=== PATIENT | male | born 1990 | race Two or more races ===

== ENCOUNTER 2018-08-06 23:11 | Emergency (ER) | payer SELFPAY ==
[~2018-08-06] VITALS: Ht 170.2 cm; Wt 72.6 kg
--- NOTE | 2018-08-06 23:28 | PHYS DOC ---
Adult General Chief Complaint Chief Complaint: FLANK PAIN HPI HPI Patient is a 27 year old male who presents with 10 out of 10 left flank pain that began a couple minutes prior to coming to the ED. Patient is also complaining of dark urine, nausea and vomiting. Denies any fever. He states he has history of kidney stones. He states he has not taken anything for his symptoms. Review of Systems Review of Systems Constitutional: Denies fever or chills [] Eyes: Denies change in visual acuity, redness, or eye pain [] HENT: Denies nasal congestion or sore throat [] Respiratory: Denies cough or shortness of breath [] Cardiovascular: No additional information not addressed in HPI [] GI: Reports nausea and vomiting. Denies abdominal pain, bloody stools or diarrhea [] : Reports left flank pain. Denies dysuria or hematuria [] Musculoskeletal: Denies back pain or joint pain [] Integument: Denies rash or skin lesions [] Neurologic: Denies headache, focal weakness or sensory changes [] All other systems were reviewed and found to be within normal limits, except as documented in this note. Current Medications Current Medications Current Medications Medications (Trade) Dose Ordered Sig/Wilmar Start Time Stop Time Status Last Admin Dose Admin Ciprofloxacin/ Dextrose 200 ml @ 200 mls/hr 1X STAT 08/07/18 00:27 08/07/18 01:26 UNV Ketorolac Tromethamine (Toradol 30mg Vial) 30 mg 1X ONCE 08/06/18 23:30 08/06/18 23:31 DC 08/06/18 23:34 30 MG Morphine Sulfate (Morphine Sulfate) 5 mg 1X ONCE 08/06/18 23:30 08/06/18 23:31 DC 08/06/18 23:34 5 MG Ondansetron HCl (Zofran) 4 mg 1X ONCE 08/06/18 23:30 08/06/18 23:31 DC 08/06/18 23:34 4 MG Potassium Chloride (Klor-Con) 40 meq 1X ONCE 08/07/18 00:15 08/07/18 00:16 DC 08/07/18 00:11 40 MEQ Sodium Chloride 1,000 ml @ 1,000 mls/hr 1X ONCE 08/06/18 23:30 08/07/18 00:29 DC 08/06/18 23:33 1,000 MLS/HR Tamsulosin HCl (Flomax) 0.4 mg 1X ONCE 08/07/18 00:00 08/07/18 00:03 DC 08/07/18 00:11 0.4 MG Allergies Allergies Allergies Coded Allergies Type Severity Reaction Last Updated Verified No Known Drug Allergies 08/06/18 No Physical Exam Physical Exam Constitutional: Well developed, well nourished, no acute distress, non-toxic appearance. [] HENT: Normocephalic, atraumatic, bilateral external ears normal, oropharynx moist, no oral exudates, nose normal. [] Eyes: PERRLA, EOMI, conjunctiva normal, no discharge. [] Neck: Normal range of motion, no tenderness, supple, no stridor. [] Cardiovascular:Heart rate regular rhythm, no murmur [] Lungs & Thorax: Bilateral breath sounds clear to auscultation [] Abdomen: Patient had vomit on his pants. Bowel sounds normal, soft, no tenderness, no masses, no pulsatile masses. [] Skin: Warm, dry, no erythema, no rash. [] Back: No tenderness, mild left CVA tenderness. [] Extremities: No tenderness, no cyanosis, no clubbing, ROM intact, no edema. [] Neurologic: Alert and oriented X 3, normal motor function, normal sensory function, no focal deficits noted. [] Psychologic: Affect normal, judgement normal, mood normal. [] Current Patient Data Vital Signs Vital Signs Date Time Temp Pulse Resp B/P (MAP) Pulse Ox O2 Delivery O2 Flow Rate FiO2 08/06/18 23:34 20 100 Room Air 08/06/18 23:15 98.2 100 147/81 (103) 98.2 Lab Values Laboratory Tests Test 08/06/18 23:30 08/06/18 23:59 White Blood Count 9.2 x10^3/uL (4.0-11.0) Red Blood Count 4.84 x10^6/uL (4.30-5.70) Hemoglobin 15.5 g/dL (13.0-17.5) Hematocrit 43.7 % (39.0-53.0) Mean Corpuscular Volume 90 fL (79-100) Mean Corpuscular Hemoglobin 32 pg (25-35) Mean Corpuscular Hemoglobin Concent 35 g/dL (31-37) Red Cell Distribution Width 13.1 % (11.5-14.5) Platelet Count 315 x10^3/uL (140-400) Neutrophils (%) (Auto) 55 % (31-73) Lymphocytes (%) (Auto) 38 % (24-48) Monocytes (%) (Auto) 7 % (0-9) Eosinophils (%) (Auto) 0 % (0-3) Basophils (%) (Auto) 0 % (0-3) Neutrophils # (Auto) 5.1 x10^3uL (1.8-7.7) Lymphocytes # (Auto) 3.5 x10^3/uL (1.0-4.8) Monocytes # (Auto) 0.6 x10^3/uL (0.0-1.1) Eosinophils # (Auto) 0.0 x10^3/uL (0.0-0.7) Basophils # (Auto) 0.0 x10^3/uL (0.0-0.2) Sodium Level 140 mmol/L (136-145) Potassium Level 3.2 mmol/L (3.5-5.1) L Chloride Level 102 mmol/L (98-107) Carbon Dioxide Level 29 mmol/L (21-32) Anion Gap 9 (6-14) Blood Urea Nitrogen 15 mg/dL (8-26) Creatinine 1.1 mg/dL (0.7-1.3) Estimated GFR (Cockcroft-Gault) 79.7 BUN/Creatinine Ratio 14 (6-20) Glucose Level 107 mg/dL (70-99) H Calcium Level 9.6 mg/dL (8.5-10.1) Total Bilirubin 0.4 mg/dL (0.2-1.0) Aspartate Amino Transferase (AST) 20 U/L (15-37) Alanine Aminotransferase (ALT) 33 U/L (16-63) Alkaline Phosphatase 73 U/L (46-116) Total Protein 8.1 g/dL (6.4-8.2) Albumin 4.1 g/dL (3.4-5.0) Albumin/Globulin Ratio 1.0 (1.0-1.7) Lipase 175 U/L (73-393) Ethyl Alcohol Level < 10 mg/dL (0-10) Urine Collection Type Unknown Urine Color Red Urine Clarity Cloudy Urine pH 6.0 Urine Specific Franklin >=1.030 Urine Protein 100 mg/dL (NEG-TRACE) Urine Glucose (UA) Negative mg/dL (NEG) Urine Ketones (Stick) Trace mg/dL (NEG) Urine Blood Large (NEG) Urine Nitrite Negative (NEG) Urine Bilirubin Negative (NEG) Urine Urobilinogen Dipstick 1.0 mg/dL (0.2 mg/dL) Urine Leukocyte Esterase Small (NEG) Urine RBC Tntc /HPF (0-2) Urine WBC 1-4 /HPF (0-4) Urine Squamous Epithelial Cells Few /LPF Urine Bacteria 0 /HPF (0-FEW) Urine Mucus Mod /LPF Urine Opiates Screen Pos (NEG) Urine Methadone Screen Neg (NEG) Urine Barbiturates Neg (NEG) Urine Phencyclidine Screen Neg (NEG) Urine Amphetamine/Methamphetamine Neg (NEG) Urine Benzodiazepines Screen Neg (NEG) Urine Cocaine Screen Neg (NEG) Urine Cannabinoids Screen Neg (NEG) Urine Ethyl Alcohol Neg (NEG) Laboratory Tests 08/06/18 23:30 Laboratory Tests 08/06/18 23:30 EKG EKG [] Radiology/Procedures Radiology/Procedures []PROCEDURE: CT ABDOMEN PELVIS WO CONTRAST PQRS Compliance Statement: One or more of the following individualized dose reduction techniques were utilized for this examination: 1. Automated exposure control 2. Adjustment of the mA and/or kV according to patient size 3. Use of iterative reconstruction technique CT abdomen/pelvis without contrast 08/06/2018 11:46 PM INDICATION: Left flank pain. COMPARISON: None available TECHNIQUE: Multiple axial CT images of the abdomen and pelvis were obtained without intravenous contrast. Coronal and sagittal reformats are provided. FINDINGS: Visualized portions of the lung bases are clear. Heart size is within normal limits. Evaluation of the solid abdominal viscera is limited by lack of intravenous contrast. No suspicious hepatic masses are identified. Spleen, bilateral adrenal glands, and pancreas are normal in appearance. Gallbladder is present without adjacent inflammatory changes. The abdominal aorta is normal in course and caliber. There are no pathologically enlarged lymph nodes in the abdomen and pelvis. There is no abdominal free fluid. There is no free intraperitoneal air. There is a small hiatal hernia. Small and large bowel are normal in caliber. There is no evidence for bowel obstruction. There are no pericolonic inflammatory changes. A normal, nondilated appendix is visualized without adjacent inflammatory changes. There is a 3 mm nonobstructing calculus in the superior pole the left kidney. There is a 4 mm calculus in the mid left ureter with associated mild to moderate left hydroureteronephrosis. No right-sided renal calculi are identified. No calculi are identified within the urinary bladder. Urinary bladder is within normal limits given degree of distention. Prostate and seminal vesicles appear normal. Suspicious osseous abnormality is identified. IMPRESSION: 1. There is a 4 mm calculus in the mid left ureter with associated mild to moderate left hydroureteronephrosis. 2. 3 mm nonobstructing calculus in superior pole left kidney. Electronically signed by: Inge Wei MD (08/07/2018 12:07 AM) [id number] DICTATED and SIGNED BY: INGE WEI MD DATE: 08/07/18 0004 Course & Med Decision Making Course & Med Decision Making Pertinent Labs and Imaging studies reviewed. (See chart for details) This is a 27-year-old male patient presenting to the ED today with left flank pain, nausea vomiting and dark urine that began a couple minutes prior to coming to the ED. Urine analysis is positive for large amount of blood and small amount of leukocytes. CBC with a normal WBC, CMP with no acute findings. CT of the abdomen and pelvic was noted for a 4 mm calculus in the mid left ureter with associated mild to moderate left hydroureteronephrosis. 3 mm nonobstructing calculus in superior pole left kidney. Patient was offered admission versus going home he states he has to go home because his fiance is going to work tomorrow morning. He was given Cipro in the ED, IV fluids, Flomax, Toradol morphine and Zofran. He states his pain is well controlled. Discharge him with hydrocodone, Flomax, Cipro and Zofran. Instructed to follow-up with the urologist in the course of this week. Instructed to return to the ED at any point symptoms worsen. His vitals are stable with normal temperature. Dragon Disclaimer Dragon Disclaimer This electronic medical record was generated, in whole or in part, using a voice recognition dictation system. Departure Departure Impression: Primary Impression: Kidney stone on left side Additional Impressions: Hydronephrosis Pyelonephritis Disposition: 01 HOME, SELF-CARE Condition: STABLE Referrals: ISAIAS DILLON MD Follow up in the course of this week Patient Instructions: Kidney Stones, Pyelonephritis, Adult, [id number] Additional Instructions: You were evaluated in the emergency room and noted to have kidney stones. You also have infection in your urine. Complete your antibiotics. Take the prescribed pain medicine as needed for pain. Do not drive or operate machinery on the pain medicine. Contact the provided urologist and follow-up with them as an outpatient in the course of this week. Come back to the ED at any point symptoms worsen. Scripts Hydrocodone/Apap 5-325 (NORCO 5-325 TABLET) 1 Each Tablet 1-2 TAB PO Q6HRS PRN for PAIN, #25 TAB Prov: MARY JO SCHULER APRN 08/07/18 Ondansetron Hcl (ZOFRAN) 4 Mg Tablet 1 TAB PO Q6HRS, #20 TAB Prov: MARY JO SCHULER APRN 08/07/18 Tamsulosin Hcl (FLOMAX) 0.4 Mg Cap.er.24h 1 CAP PO DAILY, #7 CAP 0 Refills Prov: MARY JO SCHULER APRN 08/07/18 Ciprofloxacin Hcl (CIPRO) 500 Mg Tablet 1 TAB PO BID, #14 TAB Prov: MARY JO SCHULER APRN 08/07/18 Problem Qualifiers Additional Impressions: Hydronephrosis Hydronephrosis type: with ureteral calculous obstruction Qualified Codes: N13.2 - Hydronephrosis with renal and ureteral calculous obstruction MARY JO SCHULER APRN Aug 06, 2018 23:28
[2018-08-06] MEDS ORDERED: KETOROLAC 30 MG/ML VIAL. IV ONE (23:30)
[2018-08-06] MEDS ORDERED: MORPHINE SULFATE 10 MG/ML VIAL. IV ONE (23:30)
[2018-08-06] MEDS ORDERED: IV NORMAL SALINE 1000ML BAG 1,000 ML IV ONE (23:30)
[2018-08-06] MEDS ORDERED: ONDANSETRON PF 4 MG/2 ML VIAL. IV ONE (23:30)
[2018-08-06 23:39] LABS: BASO % 0 % (0-3); EOS % 0 % (0-3); HEMATOCRIT 43.7 % (39.0-53.0); HEMOGLOBIN 15.5 g/dL (13.0-17.5); LYMPH # 3.5 x10^3/uL (1.0-4.8); LYMPH % 38 % (24-48); MEAN CORPUSCULAR HEMOGLOBIN 32 pg (25-35); MEAN CORPUSCULAR HGB CONC 35 g/dL (31-37); MEAN CORPUSCULAR VOLUME 90 fL (79-100); MONO # 0.6 x10^3/uL (0.0-1.1); MONO % 7 % (0-9); NEUT # 5.1 x10^3uL (1.8-7.7); NEUT % 55 % (31-73); PLATELET COUNT 315 x10^3/uL (140-400); RED BLOOD COUNT 4.84 x10^6/uL (4.30-5.70); RED CELL DISTRIBUTION WIDTH 13.1 % (11.5-14.5); WHITE BLOOD COUNT 9.2 x10^3/uL (4.0-11.0)
[2018-08-06 23:47] LABS: CALCIUM 9.6 mg/dL (8.5-10.1); CREATININE 1.1 mg/dL (0.7-1.3); GFR 79.7; POTASSIUM 3.2 mmol/L (3.5-5.1)
[2018-08-06 23:52] LABS: ALBUMIN 4.1 g/dL (3.4-5.0); TOTAL BILIRUBIN 0.4 mg/dL (0.2-1.0); TOTAL PROTEIN 8.1 g/dL (6.4-8.2)
[2018-08-07] MEDS ORDERED: TAMSULOSIN 0.4 MG CAP.ER.24H. PO ONE
[2018-08-07 00:10] LABS: BILIRUBIN,URINE NEGATIVE (NEG); CLARITY,URINE CLOUDY; COLOR,URINE RED; NITRITE,URINE NEGATIVE (NEG); PROTEIN,URINE 100 mg/dL (NEG-TRACE)
--- NOTE | 2018-08-07 00:11 | RAD ---
PQRS Compliance Statement: One or more of the following individualized dose reduction techniques were utilized for this examination: 1. Automated exposure control 2. Adjustment of the mA and/or kV according to patient size 3. Use of iterative reconstruction technique CT abdomen/pelvis without contrast 08/06/2018 11:46 PM INDICATION: Left flank pain. COMPARISON: None available TECHNIQUE: Multiple axial CT images of the abdomen and pelvis were obtained without intravenous contrast. Coronal and sagittal reformats are provided. FINDINGS: Visualized portions of the lung bases are clear. Heart size is within normal limits. Evaluation of the solid abdominal viscera is limited by lack of intravenous contrast. No suspicious hepatic masses are identified. Spleen, bilateral adrenal glands, and pancreas are normal in appearance. Gallbladder is present without adjacent inflammatory changes. The abdominal aorta is normal in course and caliber. There are no pathologically enlarged lymph nodes in the abdomen and pelvis. There is no abdominal free fluid. There is no free intraperitoneal air. There is a small hiatal hernia. Small and large bowel are normal in caliber. There is no evidence for bowel obstruction. There are no pericolonic inflammatory changes. A normal, nondilated appendix is visualized without adjacent inflammatory changes. There is a 3 mm nonobstructing calculus in the superior pole the left kidney. There is a 4 mm calculus in the mid left ureter with associated mild to moderate left hydroureteronephrosis. No right-sided renal calculi are identified. No calculi are identified within the urinary bladder. Urinary bladder is within normal limits given degree of distention. Prostate and seminal vesicles appear normal. Suspicious osseous abnormality is identified. IMPRESSION: 1. There is a 4 mm calculus in the mid left ureter with associated mild to moderate left hydroureteronephrosis. 2. 3 mm nonobstructing calculus in superior pole left kidney. Electronically signed by: Victorina Wei MD (08/07/2018 12:07 AM) [id number]
[2018-08-07] MEDS ORDERED: POTASSIUM CHLORIDE 20 MEQ TABLET.ER. PO ONE (00:15)
[2018-08-07 00:17] LABS: BACTERIA,URINE 0 /HPF (0-FEW); BARBITURATES NEG (NEG); BENZODIAZEPINES NEG (NEG); CANNABINOIDS NEG (NEG); COCAINE NEG (NEG); METHADONE NEG (NEG); OPIATES POS (NEG); PHENCYCLIDINE NEG (NEG); RBC,URINE TNTC /HPF (0-2); SQUAMOUS EPITHELIAL CELL,UR FEW /LPF
[2018-08-07 00:21] LABS: AMPHETAMINE/METHAMPHETAMINE NEG (NEG)
[2018-08-07] MEDS ORDERED: CIPR500T94 PO (00:36)
[2018-08-07] MEDS ORDERED: ONDA4TAB7 PO (00:36)
[2018-08-07] MEDS ORDERED: HYDR-3164 PO (00:36)
[2018-08-07] MEDS ORDERED: TAMS0.4C97 PO (00:36)
[2018-08-07] MEDS ORDERED: CIPROFLOXACIN 400MG PREMIX 200 ML IV ONE (00:45)
[2018-08-07 01:34] VITALS: BP 114/63
== END 2018-08-07 02:03 | disposition home or self-care (01) ==
LOC: ER 23:11
DX: N13.2 Hydronephrosis with renal and ureteral calculous obstruction (principal)
CPT/HCPCS: 36415; 74176; 80053; 80307; 81001; 83690; 85025; 87086; 96361; 96365; 96375; 99284; G0480; J0744; J1885; J2270; J2405; J7030

== ENCOUNTER 2018-08-16 22:24 | Emergency (ER) | payer SELFPAY ==
[~2018-08-16] VITALS: Ht 170.2 cm; Wt 70.3 kg
[~2018-08-16 22:24] MED LIST: CIPR500T94 PO; HYDR-3164 PO; ONDA4TAB7 PO; TAMS0.4C97 PO
[2018-08-16] MEDS ORDERED: fentaNYL PF VIAL 100 MCG/2 ML VIAL IV ONE (22:45)
[2018-08-16] MEDS ORDERED: IV NORMAL SALINE 1000ML BAG 1,000 ML IV ONE (22:45)
[2018-08-16] MEDS ORDERED: ONDANSETRON PF 4 MG/2 ML VIAL. IV ONE (22:45)
[2018-08-16] MEDS ORDERED: KETOROLAC 30 MG/ML VIAL. IV ONE (22:45)
[2018-08-16 22:50] LABS: BASO % 0 % (0-3); EOS # 0.1 x10^3/uL (0.0-0.7); EOS % 3 % (0-3); HEMATOCRIT 43.2 % (39.0-53.0); HEMOGLOBIN 15.2 g/dL (13.0-17.5); LYMPH # 1.8 x10^3/uL (1.0-4.8); LYMPH % 34 % (24-48); MEAN CORPUSCULAR HEMOGLOBIN 32 pg (25-35); MEAN CORPUSCULAR HGB CONC 35 g/dL (31-37); MEAN CORPUSCULAR VOLUME 91 fL (79-100); MONO # 0.6 x10^3/uL (0.0-1.1); MONO % 11 % (0-9); NEUT # 2.9 x10^3uL (1.8-7.7); NEUT % 52 % (31-73); PLATELET COUNT 284 x10^3/uL (140-400); RED BLOOD COUNT 4.77 x10^6/uL (4.30-5.70); RED CELL DISTRIBUTION WIDTH 13.4 % (11.5-14.5); WHITE BLOOD COUNT 5.5 x10^3/uL (4.0-11.0)
[2018-08-16 23:05] LABS: BILIRUBIN,URINE NEGATIVE (NEG); CLARITY,URINE CLEAR; COLOR,URINE YELLOW; NITRITE,URINE NEGATIVE (NEG); PROTEIN,URINE NEGATIVE (NEG-TRACE)
[2018-08-16 23:11] LABS: BACTERIA,URINE 0 /HPF (0-FEW); RBC,URINE OCC /HPF (0-2)
[2018-08-16 23:21] LABS: CALCIUM 8.8 mg/dL (8.5-10.1); POTASSIUM 3.9 mmol/L (3.5-5.1)
[2018-08-16 23:27] LABS: ALBUMIN 3.7 g/dL (3.4-5.0); TOTAL BILIRUBIN 0.4 mg/dL (0.2-1.0); TOTAL PROTEIN 7.3 g/dL (6.4-8.2)
--- NOTE | 2018-08-16 23:29 | PHYS DOC ---
Past Medical History Past Medical History: Kidney Stone Past Surgical History: No Surgical History Alcohol Use: Occasionally Drug Use: None Adult General Chief Complaint Chief Complaint: FLANK PAIN HPI HPI Patient is a 27 year old M who presents with left flank pain that started 30 minutes prior to arrival. Patient was seen here 10 days ago for same and found to have a moderately obstructing stone in the distal ureter and a 3 mm stone in his left kidney. He denies any fever or chills. He denies nausea or vomiting. Review of Systems Review of Systems Constitutional: Denies fever or chills [] Respiratory: Denies cough or shortness of breath [] Cardiovascular: No additional information not addressed in HPI [] GI: Denies abdominal pain, nausea, vomiting. Reports left flank pain : Denies dysuria or hematuria [] Musculoskeletal: Denies back pain or joint pain [] Integument: Denies rash or skin lesions [] Neurologic: Denies headache, focal weakness or sensory changes [] All other systems were reviewed and found to be within normal limits, except as documented in this note. Current Medications Current Medications Current Medications Medications (Trade) Dose Ordered Sig/Wilmar Start Time Stop Time Status Last Admin Dose Admin Fentanyl Citrate (Fentanyl 2ml Vial) 50 mcg 1X ONCE 08/16/18 22:45 08/16/18 22:46 DC 08/16/18 22:54 50 MCG Ketorolac Tromethamine (Toradol 30mg Vial) 15 mg 1X ONCE 08/16/18 22:45 08/16/18 22:46 DC 08/16/18 22:55 15 MG Ondansetron HCl (Zofran) 4 mg 1X ONCE 08/16/18 22:45 08/16/18 22:46 DC 08/16/18 22:55 4 MG Sodium Chloride 1,000 ml @ 1,000 mls/hr 1X ONCE 08/16/18 22:45 08/16/18 23:44 DC 08/16/18 22:55 1,000 MLS/HR Allergies Allergies Allergies Coded Allergies Type Severity Reaction Last Updated Verified No Known Drug Allergies 08/06/18 No Physical Exam Physical Exam Constitutional: Well developed, well nourished, no acute distress, non-toxic appearance. [] HENT: Normocephalic, atraumatic Eyes: PERRLA, EOMI, conjunctiva normal, no discharge. [] Neck: Normal range of motion, no tenderness, supple, no stridor. [] Cardiovascular:Heart rate regular rhythm, no murmur [] Lungs & Thorax: Bilateral breath sounds clear to auscultation [] Abdomen: Bowel sounds normal, soft, no tenderness Skin: Warm, dry, no erythema, no rash. [] Back: Left CVA tenderness Extremities: No tenderness, ROM intact Neurologic: Alert and oriented X 3, normal motor function, normal sensory function, no focal deficits noted. [] Psychologic: Affect normal, judgement normal, mood normal. [] Current Patient Data Vital Signs Vital Signs Date Time Temp Pulse Resp B/P (MAP) Pulse Ox O2 Delivery O2 Flow Rate FiO2 08/16/18 22:30 98.7 80 20 141/81 (101) 95 Room Air 98.7 Lab Values Laboratory Tests Test 08/16/18 22:32 08/16/18 22:43 08/16/18 23:07 Urine Collection Type Unknown Urine Color Yellow Urine Clarity Clear Urine pH 7.0 Urine Specific Bagley 1.015 Urine Protein Negative mg/dL (NEG-TRACE) Urine Glucose (UA) Negative mg/dL (NEG) Urine Ketones (Stick) Negative mg/dL (NEG) Urine Blood Negative (NEG) Urine Nitrite Negative (NEG) Urine Bilirubin Negative (NEG) Urine Urobilinogen Dipstick 1.0 mg/dL (0.2 mg/dL) Urine Leukocyte Esterase Negative (NEG) Urine RBC Occ /HPF (0-2) Urine WBC 1-4 /HPF (0-4) Urine Bacteria 0 /HPF (0-FEW) Urine Mucus Slight /LPF White Blood Count 5.5 x10^3/uL (4.0-11.0) Red Blood Count 4.77 x10^6/uL (4.30-5.70) Hemoglobin 15.2 g/dL (13.0-17.5) Hematocrit 43.2 % (39.0-53.0) Mean Corpuscular Volume 91 fL (79-100) Mean Corpuscular Hemoglobin 32 pg (25-35) Mean Corpuscular Hemoglobin Concent 35 g/dL (31-37) Red Cell Distribution Width 13.4 % (11.5-14.5) Platelet Count 284 x10^3/uL (140-400) Neutrophils (%) (Auto) 52 % (31-73) Lymphocytes (%) (Auto) 34 % (24-48) Monocytes (%) (Auto) 11 % (0-9) H Eosinophils (%) (Auto) 3 % (0-3) Basophils (%) (Auto) 0 % (0-3) Neutrophils # (Auto) 2.9 x10^3uL (1.8-7.7) Lymphocytes # (Auto) 1.8 x10^3/uL (1.0-4.8) Monocytes # (Auto) 0.6 x10^3/uL (0.0-1.1) Eosinophils # (Auto) 0.1 x10^3/uL (0.0-0.7) Basophils # (Auto) 0.0 x10^3/uL (0.0-0.2) Sodium Level 137 mmol/L (136-145) Potassium Level 3.9 mmol/L (3.5-5.1) Chloride Level 102 mmol/L (98-107) Carbon Dioxide Level 28 mmol/L (21-32) Anion Gap 7 (6-14) Blood Urea Nitrogen 16 mg/dL (8-26) Creatinine 1.0 mg/dL (0.7-1.3) Estimated GFR (Cockcroft-Gault) 89.0 BUN/Creatinine Ratio 16 (6-20) Glucose Level 110 mg/dL (70-99) H Calcium Level 8.8 mg/dL (8.5-10.1) Total Bilirubin 0.4 mg/dL (0.2-1.0) Aspartate Amino Transferase (AST) 32 U/L (15-37) Alanine Aminotransferase (ALT) 44 U/L (16-63) Alkaline Phosphatase 60 U/L (46-116) Total Protein 7.3 g/dL (6.4-8.2) Albumin 3.7 g/dL (3.4-5.0) Albumin/Globulin Ratio 1.0 (1.0-1.7) Laboratory Tests 08/16/18 22:43 Laboratory Tests 08/16/18 23:07 EKG EKG [] Radiology/Procedures Radiology/Procedures [] Course & Med Decision Making Course & Med Decision Making Pertinent Labs and Imaging studies reviewed. (See chart for details) Plan: home to rest, continue lortab and zofran prn, f/u with PCP, return precautions reviewed Dragon Disclaimer Bryce Disclaimer This electronic medical record was generated, in whole or in part, using a voice recognition dictation system. Departure Departure Impression: Primary Impression: Kidney stone on left side Disposition: HOME, SELF-CARE Condition: IMPROVED Referrals: NO PCP (PCP) Patient Instructions: Kidney Stones Additional Instructions: Push fluids, follow up with PCP TRINIDAD B[employer]UN [employer] Aug 16, 2018 23:29
[2018-08-17 00:34] VITALS: BP 111/76
--- NOTE | 2018-08-17 00:37 | RAD ---
CT scan of the abdomen and pelvis without contrast 10/16/2017 CLINICAL HISTORY: Right flank pain. TECHNIQUE: Unenhanced contiguous, 2 mm axial sections were obtained through the abdomen and pelvis. One or more of the following individualized dose reduction techniques were utilized for this study: 1. Automated exposure control. 2. Adjustment of the mA and/or kV according to patient size. 3. Use of iterative reconstruction technique. FINDINGS: Comparison study is dated 08/06/2018. Images through the lung bases as demonstrate minimal dependent subsegmental atelectasis bilaterally. The liver, spleen, pancreas, and adrenal glands are within normal limits. Patchy areas of increased attenuation are seen within the medullary portions of both kidneys consistent with medullary nephrocalcinosis. Several nonobstructing renal calculi are seen bilaterally which measure 1 to 2 mm in size. The 4 mm calculus seen within the left mid ureter on the previous study is now seen within the left aspect of the bladder near the left UVJ. The obstruction of the left collecting system has resolved. No right ureteral calculus is seen. There is no evidence of obstruction of the right collecting system. The abdominal aorta tapers normally. The gallbladder is well-distended. No free fluid or free air is within the abdomen. There is no evidence of bowel obstruction. Air and stool is seen throughout colon. The appendix is well-visualized and is within normal limits. Images through the pelvis demonstrate the urinary bladder distended with urine. No free fluid is seen. The osseous structures are unchanged. IMPRESSION: 1. the 4 mm ureteral calculus seen on the previous examination has been passed into the urinary bladder. The obstruction of the left collecting system has resolved. 2. No right ureteral calculus is seen. There is no evidence of obstruction of the right collecting system. Electronically signed by: Joel Villagran MD (08/17/2018 12:34 AM) [id number]
[2018-08-17] MEDS ORDERED: MORPHINE SULFATE 4 MG/ML VIAL. IV ONE (01:00)
== END 2018-08-17 01:07 | disposition home or self-care (01) ==
LOC: ER 22:24
DX: N20.2 Calculus of kidney with calculus of ureter (principal)
CPT/HCPCS: 36415; 74176; 80053; 81001; 85025; 96374; 96375; 99284; J1885; J2270; J2405; J3010; J7030